=== PATIENT | male | born 1970 | race Caucasian/White ===

== ENCOUNTER 2017-03-27 09:46 | Emergency (ER) | payer BC ==
[2017-03-27 09:54] VITALS: BP 146/89
--- NOTE | 2017-03-27 10:13 | ERNOTE ---
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 Yesterday afternoon he was kneeling without pads and made a twisting movement while kneeling, no immediate pain, no definite injury.About 20 minutes later he noticed soreness over his knee cap, that has been increasing as well as some swelling and slightly increased temperature. Minimal discomfort when standing, worse with kneeling and extreme flexion. Review of Systems - Review of Systems Constitutional: Absent: recent illness, fever ENT: Absent: nose congestion, sore throat Respiratory: Absent: shortness of breath Cardiology: Absent: chest pain, palpitations Gastrointestinal/Abdominal: Absent: nausea, vomiting, abdominal pain Genitourinary: Present: no symptoms reported Musculoskeletal: Present: See HPI Skin: Present: See HPI Neurological: Absent: headache, weakness, numbness Psych: Present: no symptoms reported - Patient's Past Medical History Patient History - Medical: No pertinent hx Patient History - Cardiac/Respiratory: No pertinent hx Patient History - Cancer: No Hx of Cancer Patient History - Surgical Procedures: Back Surgery Patient History - Other: None - Social History Living Situations: home Psych History: No pertinent hx Smoking Status: Never smoker Alcohol Use: none Drug Use: none - Immunizations Immunizations Up to Date: No Hx Pneumococcal Vaccination: No History of Influenza Vaccine: Yes Physical Exam - Physical Exam General Appearance: Present: wd/wn, alert, no apparent distress Respiratory: Present: no respiratory distress, normal breath sounds, lungs clear Cardiovascular/Chest: Present: regular rate, rhythm, no murmur Extremity Exam: Present: normal except - - over left patellar mild erythema, swelling and slightly increased temperature, no joint tenderness, no joint swelling, normal ROM, pain only with extreme flexion Neurological Exam: Present: alert, oriented, normal mood/affect, no motor/ sensory deficits Skin Exam: Present: normal color, warm/dry ED Progress - Vital Signs Patient's Vital Signs:: I have reviewed the patient's vital signs. Vital Signs: Vital Signs 03/27/17 09:50 Temperature 36.5 C Pulse Rate 77 Respiratory 16 Rate Blood Pressure 146/89 O2 Sat by Pulse 99 Oximetry Departure Clinical Impression: Prepatellar bursitis of left knee - Departure Disposition: Home self-care Condition: Good Instructions: Prepatellar Bursitis With Rehab-SportsMed Additional Instructions: if your symptoms don't improve or worsen call the orthopedic clinic for follow up Referrals: Loki Swanson MD [Staff Physician] -
== END 2017-03-27 10:08 | disposition home or self-care (01) ==
LOC: ER 09:46
DX: M70.42 Prepatellar bursitis, left knee (principal); X50.1XXA Overexertion from prolonged static or awkward postures, initial encounter